=== PATIENT | male | born 1980 | race Hispanic/Latino ===

== ENCOUNTER 2017-03-26 22:43 | Emergency (ER) | payer OTHER ==
[~2017-03-26] VITALS: Ht 162.6 cm; Wt 100.1 kg
[2017-03-26 23:19] LABS: HEMATOCRIT 37.6 % (38.0-50.0); MCH 26.1 PG (29.0-34.0); MCHC 32.7 G/DL (30.0-36.0); MCV 79.8 FL (86-99); PLATELET COUNT 268 K/uL (156-360); RBC DIS.WIDTH-CV 13.8 % (11.8-14.6); RBC DIS.WIDTH-SD 39.8 % (39-53); RED BLOOD COUNT 4.71 M/uL (4.00-5.50); WHITE BLOOD COUNT 11.8 K/uL (4.1-10.2)
[2017-03-26 23:32] LABS: CHLORIDE 103 mEq/L (99-109); POTASSIUM 4.3 mEq/L (3.7-5.4); SODIUM 139 mEq/L (136-147)
[2017-03-26 23:34] LABS: GLUCOSE 151 mg/dL (70-99)
[2017-03-26 23:35] LABS: ANION GAP 12 MEQ/L (2-14)
[2017-03-26 23:37] LABS: GFR ESTIMATE (CALCULATED) > 59 mL/min/
[2017-03-26 23:38] LABS: UREA NITROGEN (BUN) 17 mg/dL (9-23)
[2017-03-27] MEDS ORDERED: HYCODAN SYRUP480 ML PO (00:18)
[2017-03-27] MEDS ORDERED: MEDROL DOSEPAK4 MG PO (00:18)
[2017-03-27] MEDS ORDERED: ZITHROMAX Z-PA250 MG PO (00:18)
[2017-03-27 00:36] VITALS: BP 139/87
== END 2017-03-27 00:30 | disposition home or self-care (01) ==
LOC: EXP 22:43 → EME 22:43 → EXP 03-27 00:30
DX: J45.909 Unspecified asthma, uncomplicated (principal); J44.9 Chronic obstructive pulmonary disease, unspecified; J32.9 Chronic sinusitis, unspecified; I10 Essential (primary) hypertension; Z87.891 Personal history of nicotine dependence
CPT/HCPCS: 71020; 80048; 85027; 94640; 99281; 99284; J7512

== ENCOUNTER 2017-06-18 14:57 | Emergency (ER) | payer OTHER ==
[~2017-06-18] VITALS: Ht 162.6 cm; Wt 87.4 kg
[~2017-06-18 14:57] MED LIST: HYCODAN SYRUP480 ML PO; MEDROL DOSEPAK4 MG PO; ZITHROMAX Z-PA250 MG PO
[2017-06-18 16:00] LABS: CHLORIDE 102 mEq/L (99-109); POTASSIUM 3.8 mEq/L (3.7-5.4); SODIUM 139 mEq/L (136-147)
[2017-06-18 16:02] LABS: GLUCOSE 120 mg/dL (70-99)
[2017-06-18 16:03] LABS: ANION GAP 12 MEQ/L (2-14)
[2017-06-18 16:06] LABS: GFR ESTIMATE (CALCULATED) > 59 mL/min/; HEMATOCRIT 37.7 % (38.0-50.0); MCH 24.3 PG (29.0-34.0); MCHC 32.6 G/DL (30.0-36.0); MCV 74.4 FL (86-99); MEAN PLAT.VOLUME 10.5 uM^3 (9.0-12.4); PLATELET COUNT 187 K/uL (156-360); RBC DIS.WIDTH-CV 16.1 % (11.8-14.6); RBC DIS.WIDTH-SD 43.1 % (39-53); RED BLOOD COUNT 5.07 M/uL (4.00-5.50)
[2017-06-18 16:07] LABS: UREA NITROGEN (BUN) 10 mg/dL (9-23)
[2017-06-18 17:29] VITALS: BP 137/79
== END 2017-06-18 17:45 | disposition left against medical advice (07) ==
LOC: EME 14:57
DX: R50.9 Fever, unspecified (principal); R42 Dizziness and giddiness; R53.83 Other fatigue; R51 Headache; Z53.21 Procedure and treatment not carried out due to patient leaving prior to being seen by health care provider
CPT/HCPCS: 71020; 80048; 83605; 85027; 87040; 93005